=== PATIENT | female | born 1950 | race Caucasian/White ===

== ENCOUNTER 2016-11-02 05:15 | Day surgery (SDC) | payer BC ==
[~2016-11-02] VITALS: Ht 147.3 cm; Wt 67.1 kg
[~2016-11-02 05:15] MED LIST: CARDIZEM60 MG PO; FIBER500 MG PO; INVOKANA300 MG PO
[2016-11-02 06:01] VITALS: BP 161/70
[2016-11-02 06:45] LABS: POINT-OF-CARE METER ID UU14174212
[2016-11-02 08:34] LABS: POINT-OF-CARE METER ID UU13113675
[2016-11-02 09:57] VITALS: BP 130/51
[2016-11-02 11:00] VITALS: BP 112/50
[2016-11-02 11:27] LABS: POINT-OF-CARE METER ID UU14174212
[2016-11-02 13:02] VITALS: BP 123/50
[2016-11-02 13:27] VITALS: BP 116/48
== END 2016-11-02 13:44 | disposition home or self-care (01) ==
LOC: SDC 05:15
PROVIDERS: Obstetrics & Gynecology Gynecologic Oncology
PROC: 0HBAXZZ Excision of Inguinal Skin, External Approach (ICD-10-PCS; principal; 2016-11-02)
DX: N90.4 Leukoplakia of vulva (principal); E11.9 Type 2 diabetes mellitus without complications; I10 Essential (primary) hypertension; I48.91 Unspecified atrial fibrillation
CPT/HCPCS: 82948; 88305; 88342 TC; J1100; J1170; J1580; J2405; J3010; J7050; S0030